=== PATIENT | male | born 1970 | race Caucasian/White ===

== ENCOUNTER 2018-04-30 16:18 | Emergency (ER) | payer SELFPAY ==
[~2018-04-30] VITALS: Ht 177.8 cm; Wt 117.0 kg
[~2018-04-30 16:18] MED LIST: BACT800T5 PO; CEPH-460 PO
[2018-04-30 16:29] VITALS: BP 174/110; PULSE 115; RESP 16; TEMP 99; O2SAT 96
[2018-04-30 17:10] VITALS: BP 175/102; PULSE 103; RESP 18; O2SAT 97
[2018-04-30 17:20] LABS: CHLORIDE 105 MEQ/L (98-107); SODIUM (NA) 139 MEQ/L (136-145)
[2018-04-30 17:23] LABS: CALCIUM 8.4 MG/DL (8.5-10.1)
[2018-04-30 17:24] LABS: ALBUMIN 3.4 GM/DL (3.4-5.0); BICARBONATE 27.5 MEQ/L (21.0-32.0); BLOOD UREA NITROGEN 11 MG/DL (7-18); GLUCOSE,RANDOM 227 MG/DL (74-106)
[2018-04-30 17:26] LABS: AUTOMATED NEUTROPHIL # 6.6 TH/MM3 (1.8-7.7); BASOPHIL # 0.1 TH/MM3 (0-0.2); BASOPHIL % 0.7 % (0.0-2.0); EOSINOPHIL # 0.1 TH/MM3 (0-0.4); EOSINOPHIL % 1.4 % (0.0-4.0); HEMATOCRIT 43.1 % (39.0-51.0); HEMOGLOBIN 14.6 GM/DL (13.0-17.0); LYMPH % 18.3 % (9.0-44.0); LYMPHOCYTE # 1.6 TH/MM3 (1.0-4.8); MEAN CELL VOLUME 85.9 FL (80.0-100.0); MEAN CORPUSCULAR HEMOGLOBIN 29.1 PG (27.0-34.0); MEAN CORPUSCULAR HGB CONC 33.9 % (32.0-36.0); MEAN PLATELET VOLUME 8.1 FL (7.0-11.0); MONO % 5.1 % (0.0-8.0); MONOCYTE # 0.5 TH/MM3 (0-0.9); NEUT % 74.5 % (16.0-70.0); PLATELET COUNT 399 TH/MM3 (150-450); RED BLOOD COUNT 5.01 MIL/MM3 (4.50-5.90); RED CELL DISTRIBUTION WIDTH 13.6 % (11.6-17.2); WHITE BLOOD COUNT 8.9 TH/MM3 (4.0-11.0)
[2018-04-30 17:27] LABS: ALT (GPT) 52 U/L (12-78); AST (GOT) 22 U/L (15-37); CREATININE 0.82 MG/DL (0.60-1.30); GLOMERULAR FILTRATION RATE 102 ML/MIN (>89)
[2018-04-30 17:29] LABS: TOTAL BILIRUBIN ADULT 0.3 MG/DL (0.2-1.0); TOTAL PROTEIN 7.6 GM/DL (6.4-8.2)
[2018-04-30 17:30] LABS: ALKALINE PHOSPHATASE 89 U/L (45-117)
--- NOTE | 2018-04-30 17:45 | PD ---
HPI Chief Complaint: Neuro Symptoms/ Deficits Time Seen by Provider: 16:45 Travel History International Travel<30 days: No Contact w/Intl Traveler<30days: No Traveled to known affect area: No History of Present Illness HPI Patient is a 47 year old male who comes in complaining of left sided facial droop for 1.5 months. He says he came in today because his mom was worried about him. He says this is the first time he has seen her since it started. He reports some improvement of the droop. He says he woke up one morning like this and didn't think much of it. He denies headache, blurred vision, chest pain. 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 Severity is moderate. PFSH Past Medical History Medical History: Denies Significant Hx Immunizations Current: Yes Tetanus Vaccination: < 5 Years Influenza Vaccination: Yes Social History Alcohol Use: No Tobacco Use: Yes (4 cigs a day) Substance Use: No Allergies-Medications (Allergen,Severity, Reaction): Coded Allergies: No Known Allergies (Verified Adverse Reaction, Unknown, 04/30/18) Reported Meds & Prescriptions Reported Meds & Active Scripts Active Review of Systems Except as stated in HPI: all other systems reviewed are Neg General / Constitutional: No: Fever, Chills Eyes: No: Blurred Vision HENT: No: Headaches, Lightheadedness Cardiovascular: No: Chest Pain or Discomfort Respiratory: No: Shortness of Breath Gastrointestinal: No: Nausea, Vomiting Skin: No Rash, No Change in Pigmentation Neurologic: Positive: Focal Abnormalities, No: Change in Mentation, Slurred Speech Physical Exam Narrative GENERAL: Awake and alert, in no acute distress. SKIN: Focused skin assessment warm/dry. No wounds or signs of infection. HEAD: Atraumatic. Normocephalic. EYES: Pupils equal and round. No scleral icterus. EOMI. ENT: No nasal bleeding or discharge. Mucous membranes pink and moist. NECK: Trachea midline. No JVD. CARDIOVASCULAR: Regular rate and rhythm. No murmur appreciated. RESPIRATORY: No accessory muscle use. Clear to auscultation. Breath sounds equal bilaterally. GASTROINTESTINAL: Abdomen soft, non-tender, nondistended. MUSCULOSKELETAL: No obvious deformities. No clubbing. No cyanosis. No edema. NEUROLOGICAL: Awake and alert. Left sided facial droop. Unable to keep left eye closed on exam. Unable to raise left side of mouth. No arm or leg weakness. PSYCHIATRIC: Appropriate mood and affect; insight and judgment normal. Data Data Last Documented VS Vital Signs Date Time Temp Pulse Resp B/P (MAP) Pulse Ox O2 Delivery O2 Flow Rate FiO2 04/30/18 16:45 97 Room Air 04/30/18 16:29 99.0 115 16 174/110 (131) Orders Orders Ct Brain W/O Iv Contrast(Rout) (04/30/18 ) Iv Access Insert/Monitor (04/30/18 16:51) Complete Blood Count With Diff (04/30/18 16:51) Comprehensive Metabolic Panel (04/30/18 16:51) Labs Laboratory Tests Test 04/30/18 17:00 White Blood Count 8.9 TH/MM3 Red Blood Count 5.01 MIL/MM3 Hemoglobin 14.6 GM/DL Hematocrit 43.1 % Mean Corpuscular Volume 85.9 FL Mean Corpuscular Hemoglobin 29.1 PG Mean Corpuscular Hemoglobin Concent 33.9 % Red Cell Distribution Width 13.6 % Platelet Count 399 TH/MM3 Mean Platelet Volume 8.1 FL Neutrophils (%) (Auto) 74.5 % Lymphocytes (%) (Auto) 18.3 % Monocytes (%) (Auto) 5.1 % Eosinophils (%) (Auto) 1.4 % Basophils (%) (Auto) 0.7 % Neutrophils # (Auto) 6.6 TH/MM3 Lymphocytes # (Auto) 1.6 TH/MM3 Monocytes # (Auto) 0.5 TH/MM3 Eosinophils # (Auto) 0.1 TH/MM3 Basophils # (Auto) 0.1 TH/MM3 CBC Comment DIFF FINAL Differential Comment Blood Urea Nitrogen 11 MG/DL Creatinine 0.82 MG/DL Random Glucose 227 MG/DL Total Protein 7.6 GM/DL Albumin 3.4 GM/DL Calcium Level 8.4 MG/DL Alkaline Phosphatase 89 U/L Aspartate Amino Transf (AST/SGOT) 22 U/L Alanine Aminotransferase (ALT/SGPT) 52 U/L Total Bilirubin 0.3 MG/DL Sodium Level 139 MEQ/L Potassium Level 3.7 MEQ/L Chloride Level 105 MEQ/L Carbon Dioxide Level 27.5 MEQ/L Anion Gap 7 MEQ/L Estimat Glomerular Filtration Rate 102 ML/MIN [facility] Medical Decision Making Medical Screen Exam Complete: Yes Emergency Medical Condition: Yes Medical Record Reviewed: Yes Differential Diagnosis CVA vs Widener Palsy vs electrolyte abnormalities Narrative Course Patient is a 47-year-old male who comes in due to left-sided facial droop. He has had this for the past month and a half. Exam does show a left-sided facial droop. He says it is improving. CAT scan of his head shows no acute abnormalities. Labs do show an elevated blood sugar. I discussed with the patient the possibility that he has diabetes. He is advised to cut back on his sugar and carbs. He is offered metformin, but he would prefer to follow-up and try diet at this time. Mandatory referral placed to neurology. Given information about [facility]. Advised return anytime for any worsening symptoms. Last [address] 04/30/18 0000 Signed Impressions: CONCLUSION: Negative CT Head non contrast. Diagnosis Primary Impression: Berry's palsy Referrals: Calvin Toussaint MD call for appointment [facility] call for appointment Patient Instructions: Berry Palsy (ED), General Instructions Additional Instructions: Follow-up with the [facility] as well as neurology. Your blood sugar was elevated today, this likely means you have diabetes. Cut back on your sugar and carbohydrates. Increase your water intake. Return to the ED as needed for any worsening symptoms. Disposition: 01 DISCHARGE HOME Condition: Stable Ivon Gupta MD Apr 30, 2018 17:45
--- NOTE | 2018-04-30 17:56 | RADRPT ---
EXAM DATE: 04/30/2018 5:52 PM EDT AGE/SEX: 47 years / Male INDICATIONS: Right sided facial numbness. CLINICAL DATA: This is the patient's initial encounter. Patient reports that signs and symptoms have been present for 1 month and indicates a pain score of 0/10. MEDICAL/SURGICAL HISTORY: None. None. RADIATION DOSE: 60.83 CTDI (mGy) COMPARISON: No prior [place] exams available for comparison. TECHNIQUE: CT of the head without contrast. Using automated exposure control and adjustment of the mA and/or kV according to patient size, radiation dose was kept as low as reasonably achievable to ob tain optimal diagnostic quality images. FINDINGS: Cerebrum: The ventricles are normal for age. No evidence of midline shift, mass lesion, hemorrhage or acute infarction. No extraaxial fluid collections are seen. Posterior Fossa: The cerebellum and brainstem are intact. The 4th ventricle is midline. The cerebe llopontine angle is unremarkable. Extracranial: The visualized portion of the orbits is intact. Skull: The calvaria is intact. No evidence of skull fracture. CONCLUSION: Negative CT Head non contrast. Electronically signed by: Woody Denson MD 04/30/2018 5:55 PM EDT
[2018-04-30 18:00] VITALS: BP 146/82; PULSE 104; RESP 16
[2018-04-30 19:01] VITALS: BP 149/91
== END 2018-04-30 19:03 | disposition home or self-care (01) ==
LOC: PHED 16:18
DX: G51.0 Bell's palsy (principal); F17.210 Nicotine dependence, cigarettes, uncomplicated
CPT/HCPCS: 70450; 80053; 85025